=== PATIENT | female | born 1990 | race Caucasian/White ===

== ENCOUNTER 2025-06-13 22:16 | Emergency (ER) | payer SELFPAY ==
[~2025-06-13] VITALS: Ht 157.5 cm; Wt 69.0 kg
[2025-06-13 22:17] VITALS: O2SAT 99
[2025-06-14] MEDS: ACETAMINOPHEN 500MG TABLET PO ONE (00:35)
[2025-06-14] MEDS: ONDANSETRON HCL 4MG/2ML INJ IV ONE (00:35)
[2025-06-14] MEDS: SODIUM CHLORIDE 0.9% 500 ML IV ONE (00:35)
[2025-06-14 00:38] LABS: BASOPHILS % 0.3 % (0.0-2.0); EOSINOPHILS % 0.2 % (0.0-5.0); HEMATOCRIT. 35.9 % (36.0-48.0); HEMOGLOBIN. 12.3 g/dL (12.0-16.0); LYMPHOCYTES % 14.8 % (20.0-50.0); MEAN PLATELET VOLUME 8.5 fl (7.4-10.4); MONOCYTES % 3.6 % (2.0-8.0); NEUTROPHILS % 81.1 % (40.0-76.0); PLATELET 242 x1000/uL (130-400); RED BLOOD CELL COUNT 3.93 mill/uL (4.2-5.4); RED CELL DISTRIBUTION WIDTH 12.2 % (11.6-14.6)
[2025-06-14 00:48] LABS: CREATININE 0.6 mg/dL (0.6-1.0); UREA NITROGEN BLOOD 9 mg/dL (9-23)
[2025-06-14 00:51] LABS: PHOSPHORUS 3.5 mg/dL (2.5-4.9)
[2025-06-14] MEDS: MAGNESIUM 2 G PREMIX 50 ML IV SCH (01:53)
[2025-06-14 02:10] LABS: HCG SCREEN NEGATIVE
[2025-06-14] MEDS: IOHEXOL-300 100 ML BOTTLE ONE (02:28)
[2025-06-14] MEDS: KETOROLAC 15MG/ML VIAL IV SCH (03:20)
[2025-06-14] MEDS ORDERED: ACET-2708 MT (04:21)
[2025-06-14 04:44] VITALS: BP 95/51; PULSE 60; RESP 14; TEMP 36.8; O2SAT 99
== END 2025-06-14 04:57 | disposition home or self-care (01) ==
LOC: ER 22:16 → CMPBEDREQ 06-15 08:00
DX: R51.9 Headache, unspecified (principal); R10.20 Pelvic and perineal pain unspecified side; E83.42 Hypomagnesemia
CPT/HCPCS: 99285; 70450; 76830; 76856; 36415; 74177; 96365; 96375; 96361; 80048; 84703; 83735; 84100; 85025; 86850; 86900; 86901; 93005; J2405; J7040; J1885; Q9967; J3475